=== PATIENT | female | born 1985 | race Caucasian/White ===

== ENCOUNTER 2018-06-06 21:13 | Emergency (ER) | payer OTHER ==
[2018-06-06] MEDS ORDERED: Ibuprofen 800 MG TAB ONE (21:57)
[2018-06-06] MEDS ORDERED: Ondansetron ODT 4 MG TAB ONE (21:57)
== END 2018-06-06 22:30 | disposition home or self-care (01) ==
LOC: ERS 21:13
DX: S06.0X9A Concussion with loss of consciousness of unspecified duration, initial encounter (principal); S00.03XA Contusion of scalp, initial encounter; F41.9 Anxiety disorder, unspecified; Z79.899 Other long term (current) drug therapy; Y04.0XXA Assault by unarmed brawl or fight, initial encounter
CPT/HCPCS: 99283; Q0162

== ENCOUNTER 2019-04-05 11:34 | Emergency (ER) | payer OTHER, SELFPAY ==
[2019-04-05 12:09] LABS: Bilirubin Unable to Interpret (Negative); Blood, Urine Unable to Interpret (Negative); Glucose, Urine (Dipstick) Unable to Interpret mg/dL (Negative); Leukocyte Unable to Interpret (Negative); Nitrite Unable to Interpret (Negative); Protein, Urine (Dipstick) Unable to Interpret mg/dL (Neg-Trace); Urobilinogen UNABLE TO INTERPRET mg/dL (Less than 2)
[2019-04-05 12:10] LABS: Pregnancy Test - Urine (BHCG) Negative (Negative); Pregu Control Background? CLEAR/WHITE (CLR/WHITE); Pregu Control Bar Appear? YES (CONTROL BAR); Specific Gravity 1.014 (1.002-1.036)
[2019-04-05 12:20] LABS: Clarity Clear (Clear)
[2019-04-05 12:21] LABS: Bacteria/HPF 1+ HPF (None Seen); RBC/HPF None Seen HPF (0-3); Squamous Epithelial 0-3 HPF (0-3)
== END 2019-04-05 12:37 | disposition home or self-care (01) ==
LOC: ERS 11:34
DX: N39.0 Urinary tract infection, site not specified (principal); F41.9 Anxiety disorder, unspecified; Z79.899 Other long term (current) drug therapy
CPT/HCPCS: 81003; 81015; 81025; 99284

== ENCOUNTER 2019-05-03 13:36 | Emergency (ER) | payer OTHER ==
[2019-05-03] MEDS ORDERED: Ketorolac Tromethamine 30 MG/ML VIAL ONE (14:06)
== END 2019-05-03 14:29 | disposition home or self-care (01) ==
LOC: ERS 13:36
DX: S16.1XXA Strain of muscle, fascia and tendon at neck level, initial encounter (principal); F41.9 Anxiety disorder, unspecified; Z79.899 Other long term (current) drug therapy; V89.2XXA Person injured in unspecified motor-vehicle accident, traffic, initial encounter
CPT/HCPCS: 99283; J1885

== ENCOUNTER 2019-11-07 10:27 | Outpatient (CLI) | payer OTHER ==
--- NOTE | 2019-11-07 11:11 | ULT ---
Exam: Transabdominal and endovaginal pelvic ultrasound HISTORY:Pelvic inflammatory disease COMPARISON: None TECHNIQUE: Transabdominal and endovaginal imaging of the pelvis is performed. Ovaries are interrogate d with grayscale, color flow, Doppler imaging and spectral wave form analysis FINDINGS: Uterus: No myometrial masses. Uterus measurin.2 x 4.8 x 5.6 cm. Endometrium: Homogeneous echotexture. Endometrium diameter: 0.8 cm. Multiple nabothian cysts are noted. Free fluid: None Right ovary: Normal echotexture Right ovary measurement: 2.7 x 1.9 x 2.1 cm Left ovary: Normal echotexture. Left ovary measurements: 2.2 x 1.2 x 1.0 cm Ovarian Doppler: There is vascular flow to the left and right ovary. Prominent bilateral adnexal vessels. Correlate fo r pelvic venous congestion IMPRESSION: Unremarkable pelvic ultrasound. Incidental findings as above.
== END 2019-11-07 10:28 | disposition home or self-care (01) ==
LOC: BICULT 10:27
PROVIDERS: ATTEND Family Medicine
DX: N73.9 Female pelvic inflammatory disease, unspecified (principal)
CPT/HCPCS: 76856

== ENCOUNTER 2020-10-23 08:39 | Outpatient (CLI) | payer OTHER ==
--- NOTE | 2020-10-23 09:29 | ULT ---
EXAM: US Gallbladder RUQ CLINICAL HISTORY: Right upper quadrant pain. COMPARISON: None. FINDINGS: Pancreas: The head and proximal pancreas has a normal echotexture. The remainder the pancreas is obs cured by bowel gas Liver:Hepatic parenchyma has a normal echotexture. No hepatic masses or intrahepatic biliary dilatati on. Right hepatic lobe: 13.7 cm Gallbladder: No sonographic evidence of cholelithiasis, gallbladder wall thickening or pericholecysti c fluid. Frias's sign:Negative Portal Vein: Patent. Appropriate directional flow Bile ducts: 0.35 cm common bile duct diameter Right kidney: No hydronephrosis. Right kidney measures 3.8 x 3.5 x 9.5 cm in length. IMPRESSION: Unremarkable exam.
== END 2020-10-23 08:40 | disposition home or self-care (01) ==
LOC: BICULT 08:39
PROVIDERS: ATTEND Family Medicine
DX: R10.11 Right upper quadrant pain (principal)
CPT/HCPCS: 76705

== ENCOUNTER 2021-03-05 10:09 | Outpatient (CLI) | payer OTHER | END 2021-03-05 10:10 | disposition home or self-care (01) | LOC: CTENTCT 10:09 | PROVIDERS: ATTEND Specialist | DX: J32.8 Other chronic sinusitis (principal) | CPT/HCPCS: 70486 ==

== ENCOUNTER 2021-05-23 06:39 | Day surgery (SDC) | payer OTHER ==
[2021-05-22 14:10] VITALS: BMI 27.3
[2021-05-23] MEDS ORDERED: AFRIN NASAL MIST 15 ML BOT ONE ×2 (07:27→08:21)
[2021-05-23] MEDS ORDERED: Midazolam HCl 2 mg/2 ml Vial ONE (08:10)
[2021-05-23] MEDS ORDERED: Lidocaine 1% w/Epinephrine 1:100K 20 ML VIAL ONE (08:21)
[2021-05-23] MEDS ORDERED: EPINEPHrine 1 MG/ML AMP ONE (08:22)
[2021-05-23] MEDS ORDERED: Fentanyl 100 MCG/2 ML VIAL ONE ×2 (08:27→10:43)
[2021-05-23] MEDS ORDERED: Glycopyrrolate 0.2 MG/ML 5 ML SYRINGE ONE (08:42)
[2021-05-23] MEDS ORDERED: Lidocaine 1% PF 5 ML VIAL ONE (08:42)
[2021-05-23] MEDS ORDERED: Rocuronium Bromide 10 MG/ML (10ML VIAL) ONE (08:42)
[2021-05-23] MEDS ORDERED: PROPOFOL 200 MG/20 ML VIAL ONE (08:42)
[2021-05-23] MEDS ORDERED: Ondansetron PF 4 MG/2 ML Vial ONE ×2 (08:42→11:54)
[2021-05-23] MEDS ORDERED: Dexamethasone 20 MG/5 ML VIAL ONE (08:42)
[2021-05-23] MEDS ORDERED: Bacitracin Zinc Ointment 30 gm TUBE ONE (09:14)
[2021-05-23] MEDS ORDERED: methylPREDNISolone Acetate 40 mg/ml Vial ONE (09:28)
[2021-05-23] MEDS ORDERED: Albuterol Sulfate 1.25 MG/3 ML NEB ONE (10:35)
[2021-05-23] MEDS ORDERED: Hydrocodone-Acetamin 15 ML UDCUP ONE (11:54)
== END 2021-05-23 13:00 | disposition home or self-care (01) ==
LOC: SDC 06:39
PROVIDERS: ATTEND Specialist
PROC: 099T8ZZ Drainage of Left Frontal Sinus, Via Natural or Artificial Opening Endoscopic (ICD-10-PCS; principal; 2021-05-23)
PROC: 099R8ZZ Drainage of Left Maxillary Sinus, Via Natural or Artificial Opening Endoscopic (ICD-10-PCS; principal; 2021-05-23)
PROC: 099S8ZZ Drainage of Right Frontal Sinus, Via Natural or Artificial Opening Endoscopic (ICD-10-PCS; principal; 2021-05-23)
PROC: 09TV8ZZ Resection of Left Ethmoid Sinus, Via Natural or Artificial Opening Endoscopic (ICD-10-PCS; principal; 2021-05-23)
PROC: 099W8ZZ Drainage of Right Sphenoid Sinus, Via Natural or Artificial Opening Endoscopic (ICD-10-PCS; principal; 2021-05-23)
PROC: 09TL8ZZ Resection of Nasal Turbinate, Via Natural or Artificial Opening Endoscopic (ICD-10-PCS; principal; 2021-05-23)
PROC: 09TU8ZZ Resection of Right Ethmoid Sinus, Via Natural or Artificial Opening Endoscopic (ICD-10-PCS; principal; 2021-05-23)
PROC: 099X8ZZ Drainage of Left Sphenoid Sinus, Via Natural or Artificial Opening Endoscopic (ICD-10-PCS; principal; 2021-05-23)
PROC: 099Q8ZZ Drainage of Right Maxillary Sinus, Via Natural or Artificial Opening Endoscopic (ICD-10-PCS; principal; 2021-05-23)
PROC: 09SM0ZZ Reposition Nasal Septum, Open Approach (ICD-10-PCS; principal; 2021-05-23)
PROC: 8E09XBZ Computer Assisted Procedure of Head and Neck Region (ICD-10-PCS; principal; 2021-05-23)
DX: J32.4 Chronic pansinusitis (principal); J34.2 Deviated nasal septum; J34.3 Hypertrophy of nasal turbinates; J03.90 Acute tonsillitis, unspecified; G50.1 Atypical facial pain; K21.9 Gastro-esophageal reflux disease without esophagitis; Z79.2 Long term (current) use of antibiotics; Z79.899 Other long term (current) drug therapy; Z88.1 Allergy status to other antibiotic agents
CPT/HCPCS: 93005; 93010; J0171; J1100; J2250; J2405; J2704; J2920; J3010